=== PATIENT | male | born 1995 | race Caucasian/White ===

== ENCOUNTER 2019-09-05 14:59 | Emergency (ER) | payer BC, OTHER ==
[2019-09-05 15:05] VITALS: BP 172/94; PULSE 108; TEMP 98.4; BMI 33.5
--- NOTE | 2019-09-05 15:06 | PDOC ---
Rapid Medical Evaluation Time Seen by Provider: 09/05/19 15:03 Medical Evaluation: 09/05/19 15:03 This patient had rapid medical evaluation in triage cc:asthma exacerbation HPI:patient reports asthma exacerbation today complaining of chest tightness and shortness of breath even after using albuterol pump PE: nad +expiratory wheezing bilaterally heart [id number] Orders: neb treatment ordered This patient will proceed to ed for further evaluation. Discharge Disposition - Diagnosis Asthma exacerbation - Referrals - Patient Instructions - Post Discharge Activity
[2019-09-05] MEDS: ALBUTEROL SO4 2.5/IPRATROPIUM 0.5 INH SOL 3 ML VIAL.NEB. NEB SCH ×4 (16:03→17:15)
[2019-09-05] MEDS ORDERED: ALBUTEROL SO4 2.5/IPRATROPIUM 0.5 INH SOL 3 ML VIAL.NEB. NEB ONE ×2 (16:33→17:31)
[2019-09-05] MEDS ORDERED: DEXAMETHASONE LIQUID 0.5 MG/5 ML PO ONE (17:30)
--- NOTE | 2019-09-05 17:30 | PDOC ---
History of Present Illness - General History Source: Patient Exam Limitations: No Limitations <Shefali Steve - Last Filed: 09/08/19 19:54> <Corinne,Garrick - Last Filed: 09/09/19 00:49> - General Chief Complaint: Asthma Stated Complaint: ASTHMA Time Seen by Provider: 09/05/19 15:03 Past History - Travel Traveled outside of the country in the last 30 days: No Close contact w/someone who was outside of country & ill: No - Past Medical History Anemia: Yes COPD: No - Psycho Social/Smoking Cessation Hx Smoking History: Never smoked <Risa Steveca - Last Filed: 09/08/19 19:54> <Corinne,Garrick - Last Filed: 09/09/19 00:49> - Past Medical History Allergies/Adverse Reactions: Allergies Allergy/AdvReac Type Severity Reaction Status Date / Time No Known Allergies Allergy Verified 09/05/19 15:05 Home Medications: Ambulatory Orders Methylprednisolone [Medrol Dose Ascencion] 4 mg PO ASDIR #21 tablet 09/05/19 Review of Systems - Review of Systems Able to Perform ROS?: Yes Comments:: 09/05/19 18:43 CONSTITUTIONAL: Absent: fever, chills, diaphoresis, generalized weakness, malaise, loss of appetite HEENT: Absent: rhinorrhea, nasal congestion, throat pain, throat swelling, difficulty swallowing, mouth swelling, ear pain, eye pain, visual Changes CARDIOVASCULAR: Absent: chest pain, loss of consciousness, palpitations, irregular heart rate, peripheral edema RESPIRATORY: Present: Wheezing, shortness of breath Absent: cough, dyspnea with exertion, orthopnea, stridor, hemoptysis GASTROINTESTINAL: Absent: abdominal pain, abdominal distension, nausea, vomiting, diarrhea, constipation, melena, hematochezia GENITOURINARY: Absent: dysuria, frequency, urgency, hesitancy, hematuria, flank pain, genital pain MUSCULOSKELETAL: Absent: myalgia, arthralgia, joint swelling SKIN: Absent: rash, itching, pallor HEMATOLOGIC/IMMUNOLOGIC: Absent: easy bleeding, easy bruising, lymphadenopathy, frequent infections ENDOCRINE: Absent: unexplained weight gain, unexplained weight loss, heat intolerance, cold intolerance NEUROLOGIC: Absent: headache, focal weakness or paresthesias, dizziness, unsteady gait, seizure, mental status changes, bladder or bowel incontinence PSYCHIATRIC: Absent: anxiety, depression, suicidal or homicidal ideation, hallucinations. Is the patient limited [place] proficient: No <Shefali Steve - Last Filed: 09/08/19 19:54> *Physical Exam - Vital Signs Last Vital Signs Temp Pulse Resp BP Pulse Ox 98.4 F 108 H 19 172/94 H 96 09/05/19 15:01 09/05/19 15:01 09/05/19 15:09/05/19 15:09/05/19 16:13 - Physical Exam 09/05/19 18:43 GENERAL: Well developed, well nourished. Awake and alert. No acute distress. HEENT: Normocephalic, atraumatic. PERRLA, EOMI. No conjunctival pallor. Sclera are non- icteric. Moist mucous membranes. Oropharynx is clear. NECK: Supple. Full ROM. No JVD. Carotid pulses 2+ and symmetric, without bruits. No thyromegaly. No lymphadenopathy. CARDIOVASCULAR: Regular rate and rhythm. No murmurs, rubs, or gallops. Distal pulses are 2+ and symmetric. PULMONARY: No evidence of respiratory distress. Lungs with expiratory wheezing throughout all lung naylor. No rales or rhonchi. Speaking in full sentences ABDOMINAL: Soft. Non-tender. Non-distended. No rebound or guarding. No organomegaly. Normoactive bowel sounds. MUSCULOSKELETAL Normal range of motion at all joints. No bony deformities or tenderness. No CVA tenderness. EXTREMITIES: No cyanosis. No clubbing. No edema. No calf tenderness. SKIN: Warm and dry. Normal capillary refill. No rashes. No jaundice. NEUROLOGICAL: Alert, awake, appropriate. Cranial nerves 2-12 intact. No deficits to light touch and temperature in face, upper extremities and lower extremities. No motor deficits in the in face, upper extremities and lower extremities. Normoreflexic in the upper and lower extremities. Normal speech. Toes are down- going bilaterally. Gait is normal without ataxia. PSYCHIATRIC: Cooperative. Good eye contact. Appropriate mood and affect. <Shefali Steve - Last Filed: 09/08/19 19:54> - Vital Signs Last Vital Signs Temp Pulse Resp BP Pulse Ox 98.4 F 108 H 19 172/94 H 96 09/05/19 15:01 09/05/19 15:01 09/05/19 15:01 09/05/19 15:01 09/05/19 16:13 <Garrick Sun - Last Filed: 09/09/19 00:49> ED Treatment Course - Medications Given in the ED: ED Medications Discontinued Medications Generic Name Dose Route Start Last Admin Trade Name Freq PRN Reason Stop Dose Admin Albuterol/Ipratropium 1 amp 09/05/19 16:00 09/05/19 16:03 Duoneb - NEB 09/05/19 16:46 1 amp Q15M KATHARINE Administration <Risa Steveca - Last Filed: 09/08/19 19:54> - Medications Given in the ED: ED Medications Discontinued Medications Generic Name Dose Route Start Last Admin Trade Name Freq PRN Reason Stop Dose Admin Albuterol/Ipratropium 1 amp 09/05/19 16:00 09/05/19 17:15 Duoneb - NEB 09/05/19 16:46 1 amp Q15M KATHARINE Administration Dexamethasone 10 mg 09/05/19 17:30 09/05/19 17:30 Decadron Liquid - PO 09/05/19 17:31 10 mg ONCE ONE Administration <Garrick Sun - Last Filed: 09/09/19 00:49> Medical Decision Making - Medical Decision Making 09/05/19 18:50 The patient is a 24 y/o M with PMH of asthma who presents for an asthma exacerbation today. He states his symptoms started this morning. He has been using his inhaler at home with little relief of symptoms. He has never been intubated or hospitalized for his asthma. Denies fevers, chills, flu like symptoms, n/v/d. A/P: Asthma exacerbation On exam lungs with diffuse wheezing bilaterally. Chest x-ray shows no pneumonia. O2 sat initially 94 in triage. 4 DuoNebs, Decadron given with relief of symptoms. Repeat lung exam now with less wheezing. Patient reports feeling better and that he does not feel tight. Repeat O2 sat is 96. Discharge home with pulmonology follow-up and steroids. Strict return precautions given. I discussed the physical exam findings, ancillary test results and final diagnoses with the patient. I answered all of the patient's questions. The patient was satisfied with the care received and felt comfortable with the discharge plan and treatment plan. The Patient agrees to follow up with the primary care physician/specialist within 24-72 hours. Return precautions were given. <Shefali Steve - Last Filed: 09/08/19 19:54> - Medical Decision Making The patient was seen and evaluated in conjunction with VITOR Steve under my direct supervision, ancillary studies were reviewed. I agree with the plan as outlined by VITOR Steve . <Garrick Sun - Last Filed: 09/09/19 00:49> Discharge - Discharge Information Problems reviewed: Yes - Admission No <Shefali Steve - Last Filed: 09/08/19 19:54> <Garrick Sun - Last Filed: 09/09/19 00:49> - Discharge Information Clinical Impression/Diagnosis: Asthma exacerbation Qualifiers: Asthma severity: mild Asthma persistence: intermittent Qualified Code(s): J45.21 - Mild intermittent asthma with (acute) exacerbation Condition: Stable Disposition: HOME - Additional Discharge Information Prescriptions: Methylprednisolone [Medrol Dose Ascencion] 4 mg PO ASDIR #21 tablet - Follow up/Referral Referrals: Yoan Johnston MD, MD [Staff Physician] - - Patient Discharge Instructions Patient Printed Discharge Instructions: DI for Asthma -- Adult Additional Instructions: You were treated for your asthma exacerbation today. Please take the steroids as directed starting tomorrow. You received your first dose in the emergency department tonight. Please continue your albuterol nebulizers every 4 hours until your exacerbation subsides. Please follow-up with your primary care doctor next week for further treatment. You were also given a referral to see a tax preparer. This is a lung specialist. Call to make an appointment for within the month. Return to the ER if you have increased trouble breathing, shortness of breath, chest pain or if you have any changes in your symptoms. - Post Discharge Activity Work/Back to School Note: Back to Work
[2019-09-05] MEDS ORDERED: DEXAMETHASONE SOD PHOSPHATE 10 MG/1 ML VIAL ONE (17:31)
== END 2019-09-05 20:39 | disposition home or self-care (01) ==
LOC: JER 14:59
PROC: 3E0F7GC Introduction of Other Therapeutic Substance into Respiratory Tract, Via Natural or Artificial Opening (ICD-10-PCS; principal; 2019-09-05)
DX: J45.21 Mild intermittent asthma with (acute) exacerbation (principal)
CPT/HCPCS: 99284-25